=== PATIENT | male | born 1985 | race Caucasian/White ===

== ENCOUNTER 2020-12-09 22:09 | Emergency (ER) | payer MEDICAID ==
--- NOTE | 2020-12-09 22:48 | EDM.PDOC ---
ED HPI GENERAL MEDICAL PROBLEM - General Chief Complaint: Bite:Animal, Insect Time Seen by Provider: 12/09/20 22:48 Source of Information: Reports: Patient, RN Notes Reviewed History Limitations: Reports: No Limitations - History of Present Illness INITIAL COMMENTS - FREE TEXT/NARRATIVE: Dillon presents today with complaints of dog bite to bilateral hands that occurred prior to arrival. He reports two [place] began to fight, he tried to break them up and he was bit to his left/right hands. He denies any other injury, trauma, fever, chills, nausea, vomiting, change in bowel/bladder or other concerns. Last tetanus 2017 He reports both dogs have been immunized. He was advised to notify police if he feels he needs to. 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 - Infectious Disease History Infectious Disease History: Reports: Chicken Pox - Past Surgical History GI Surgical History: Reports: Hernia, Inguinal Social & Family History - Tobacco Use Tobacco Use Status *Q: Current Every Day Tobacco User Years of Tobacco use: 20 Packs/Tins Daily: 1 - Caffeine Use Caffeine Use: Reports: Coffee, Energy Drinks, Soda - Recreational Drug Use Recreational Drug Use: No ED ROS GENERAL - Review of Systems Review Of Systems: See Below Constitutional: Reports: No Symptoms HEENT: Reports: No Symptoms Respiratory: Reports: No Symptoms Cardiovascular: Reports: No Symptoms Endocrine: Reports: No Symptoms GI/Abdominal: Reports: No Symptoms : Reports: No Symptoms Musculoskeletal: Reports: Other (Pain to bilateral hands at sites of dog bite/lacerations) Skin: Reports: Wound (multiple lacerations to left hand/fingers and right finger, bleeding controlled) Neurological: Reports: Other (Patient reports paresthesia to left tip of index finger and to base of nail bed since dog bite) Psychiatric: Reports: No Symptoms Hematologic/Lymphatic: Reports: No Symptoms Immunologic: Reports: No Symptoms ED EXAM, ANIMAL BITE - Physical Exam Exam: See Below Text/Narrative:: Left hand dominant male with dog bite to left index finger. Exam Limited By: No Limitations General Appearance: Alert, WD/WN, No Apparent Distress Eye Exam: Bilateral Eye: Normal Inspection, PERRL Throat/Mouth: Normal Inspection, Normal Lips, Normal Teeth, Normal Gums, Normal Oropharynx, Normal Voice, No Airway Compromise Head: Atraumatic, Normocephalic Neck: Normal Inspection, Supple, Non-Tender, Full Range of Motion. No: Lymphadenopathy (R), Lymphadenopathy (L) Respiratory/Chest: No Respiratory Distress, Lungs Clear, Normal Breath Sounds, No Accessory Muscle Use, Chest Non-Tender. No: Crackles, Rales, Rhonchi, Wheezing Cardiovascular: Normal Peripheral Pulses, Regular Rate, Rhythm, No Edema, No Gallop, No Murmur, No Rub Peripheral Pulses: 4+: Radial (L), Radial (R) Back Exam: Normal Inspection, Full Range of Motion. No: Muscle Spasm, Paraspinal Tenderness, Vertebral Tenderness Extremities: Normal Range of Motion, No Pedal Edema, Normal Capillary Refill, Other (Tender to palpation to left index finger at site of lacerations. ) Neurological: Alert, Oriented, CN II-XII Intact, Normal Gait, Normal Reflexes, No Motor/Sensory Deficits, Other (Noted numbness to lateral aspect of index finger and nailbed. No decrease in ROM. ) Psychiatric: Normal Affect, Normal Mood Skin Exam: Normal Color, Warm/Dry, Other (irregular flap like laceration to left lateral index finger, 2cm in length. Superficial laceration x 2 to left index finger 0.5cm. Bleeding controlled, no obvious tendon or bone injury. ) Lymphatic: No Adenopathy ED ANIMAL BITE PROCEDURES - Laceration/Wound Repair Left Lateral Digit - 2nd (Index) Lac/Wound Length In cm: 2 Appearance: Irregular, Clean Distal NVT: Neuro & Vascular Intact, No Tendon Injury Anesthetic Type: Local Local Anesthesia - Lidocaine (Xylocaine): 1% Plain Local Anesthetic Volume: 1cc Skin Prep: Chlorhexidine (Hibiciens), Saline Saline Irrigation (cc's): 30 Exploration/Debridement/Repair: Wound Explored, In a Bloodless Field, Explored to Base, No Foreign Material Found, Other (flap aligned, well approximated) Closed With: Sutures Suture Size: 3-0 # of Sutures: 3 Suture Type: Nylon Sterile Dressing Applied: Provider Tetanus Status Addressed: Yes Complications: No Progress/Comments: Patient tolerated well. Bacitracin to All wounds, telfa, finger dressing and vicente wrap. Patient tolerated well. Education provided on signs and symptoms of infection, patient verbalized understanding. Course - Vital Signs Last Recorded V/S: Last Vital Signs Temp 36.6 C 12/09/20 22:35 Pulse 78 12/09/20 22:35 Resp 16 12/09/20 22:35 BP 144/89 H 12/09/20 22:35 Pulse Ox 98 12/09/20 22:35 - Orders/Labs/Meds Meds: Medications Discontinued Medications Generic Name Dose Route Start Last Admin Trade Name Dukeq PRN Reason Stop Dose Admin Bacitracin 1 dose 12/09/20 23:03 12/09/20 23:28 Bacitracin Oint 1 Gm U/D Packet TOP 12/09/20 23:04 1 dose ONETIME ONE Administration Bacitracin Confirm 12/09/20 23:03 Bacitracin Oint 1 Gm U/D Packet Administered 12/09/20 23:04 Dose 1 dose .ROUTE .STK-MED ONE Lidocaine HCl 5 ml 12/09/20 22:55 12/09/20 23:28 Lidocaine 1% 5 Ml Sdv INJECT 12/09/20 22:56 5 ml ONETIME ONE Administration - Re-Assessments/Exams Free Text/Narrative Re-Assessment/Exam: 12/09/20 22:58 Soak bilateral hands in saline/chlorhexidine Departure - Departure Time of Disposition: 23:51 Disposition: Home, Self-Care 01 Condition: Good Clinical Impression: Dog bite of extremity, Laceration of left index finger - Discharge Information *PRESCRIPTION DRUG MONITORING PROGRAM REVIEWED*: Not Applicable *COPY OF PRESCRIPTION DRUG MONITORING REPORT IN PATIENT MARIBELL: Not Applicable Instructions: Animal Bite, Adult, [id number] Referrals: PCP,None [Primary Care Provider] - Forms: ED Department Discharge Additional Instructions: You have been evaluated and treated for dog bite to bilateral hands with multiple lacerations. One laceration to left index finger required sutures x 3. Keep current dressing in place for 24 hours. Keep the wounds clean and dry. Wash area with mild soap and water twice per day. Dry and apply bacitracin ointment in thin layer to wounds. Cover with bandaid if at risk for becoming dirty. Avoid water, bejarano water, river water until healed to prevent infection. Take ibuprofen and tylenol as needed for pain with food. Take cephalexin 500mg, two tablets for total of 1000mg by mouth twice per day for 10 days to help prevent infection of dog bite near joint space of left index finger. Watch for signs and symptoms of infection or worsening. If worsening, issues or concerns return to the emergency room. Suture removal in 10 days. Follow up with primary as needed. Sepsis Event Note (ED) - Evaluation Sepsis Screening Result: No Definite Risk - Focused Exam Vital Signs: Vital Signs Temp Pulse Resp BP Pulse Ox 12/09/20 22:35 36.6 C 78 16 144/89 H 98 12/09/20 22:33 36.6 C 78 16 144/89 H 98 - Assessment/Plan Assessment:: Dog bite of extremity, Laceration of left index finger Plan: Patient evaluated and treated for dog bite to bilateral hands with multiple lacerations. One laceration to left index finger required sutures x 3. Keep current dressing in place for 24 hours. Keep the wounds clean and dry. Wash area with mild soap and water twice per day. Dry and apply bacitracin ointment in thin layer to wounds. Cover with bandaid if at risk for becoming dirty. Avoid water, bejarano water, river water until healed to prevent infection. Take ibuprofen and tylenol as needed for pain with food. Take cephalexin 500mg, two tablets for total of 1000mg by mouth twice per day for 10 days to help prevent infection of dog bite near joint space of left index finger. Watch for signs and symptoms of infection or worsening. If worsening, issues or concerns return to the emergency room. Suture removal in 10 days. Follow up with primary as needed. Patient advised to follow up with primary for any questions.
[2020-12-09] MEDS ORDERED: Mupirocin Oint 22 GM Tube TOP ONE (22:55)
[2020-12-09] MEDS ORDERED: Bacitracin Oint 1 GM U/D Packet TOP ONE (23:03)
[2020-12-09] MEDS ORDERED: Bacitracin Oint 1 GM U/D Packet ONE (23:03)
== END 2020-12-09 23:55 | disposition home or self-care (01) ==
LOC: JP.ED 22:09
DX: S61.251A Open bite of left index finger without damage to nail, initial encounter (principal); Z72.0 Tobacco use; W54.0XXA Bitten by dog, initial encounter
CPT/HCPCS: 12001; 99282; 99282-25; A9270-GY